=== PATIENT | male | born 1945 | race Caucasian/White ===

== ENCOUNTER 2020-09-06 16:42 | Observation (INO) ==
[2020-09-06] MEDS ORDERED: Mag Hydrox/Al Hydrox/Simeth 30 ML UDC PO PRN (18:30)
[2020-09-06] MEDS ORDERED: Acetaminophen 325 MG TABLET PO PRN (18:30)
[2020-09-06] MEDS ORDERED: Ondansetron ODT 4 MG TAB.RAPDIS SL PRN (18:30)
[2020-09-06] MEDS ORDERED: MOM Conc 10 ML UD.LIQ PO PRN (18:30)
[2020-09-06] MEDS ORDERED: Naloxone 0.4 MG/ML INJ IVP PRN (18:30)
[2020-09-07 01:10] LABS: Hematocrit 41.4 % (37.5-50.1); Hemoglobin 13.6 g/dL (12.9-16.9); Mean Corpuscular HGB Conc 32.9 g/dL (31.6-35.5); Mean Corpuscular Hemoglobin 31.9 pg (28.0-33.3); Mean Corpuscular Volume 97.2 fL (83.0-100.0); Mean Platelet Volume 8.9 fL (9.4-12.4); Platelet Count 231 K/mcL (140-400); Red Blood Count 4.26 M/mcL (4.19-5.50); Red Cell Distribution Width 14.6 % (11.5-14.5); White Blood Count 7.6 K/mcL (4.3-11.1)
[2020-09-07 01:27] LABS: BUN/Creatinine Ratio 15 (6-26); Blood Urea Nitrogen 15 mg/dL (8-23); Calcium 8.8 mg/dL (8.6-10.3); Carbon Dioxide 24 mEq/L (23-29); Chloride 107 mEq/L (98-107); Glucose 114 mg/dL (70-105); Magnesium 2.3 mg/dL (1.6-2.6); Osmolality,Calculated 286 (280-300); Potassium 4.3 mEq/L (3.5-5.1); Sodium 137 mEq/L (136-145); eGFR For African Americans > 60 (> 60); eGFR For Non-African Americans > 60 (> 60)
[2020-09-07] MEDS: *HR* Enoxaparin 40 MG/0.4 ML SYRINGE SQ SCH (05:30)
[2020-09-07] MEDS: Isosorbide MONOnitrate (24 HR) 30 MG TAB.ER.24H PO SCH (09:30)
[2020-09-07] MEDS: Aspirin Enteric Coated 81 MG Tablet PO SCH (09:30)
[2020-09-07] MEDS: Ranolazine 500 MG TAB.ER.12H PO SCH ×2 (09:30→21:08)
[2020-09-07] MEDS ORDERED: Perflutren Lipid Microsphere 1.3 ML in 0.9 % Sodium Chloride 8.7 ML IVP PRN (14:10)
[2020-09-07] MEDS ORDERED: NON-FORMULARY MEDICATION 1 EACH EACH (Pantoprazole Sodium 40 MG Tablet.Dr) PO SCH (21:00)
[2020-09-08] MEDS: *HR* Enoxaparin 40 MG/0.4 ML SYRINGE SQ SCH (05:43)
[2020-09-08] MEDS ORDERED: Regadenoson 0.4 MG/5 ML SYRINGE IVP ONE (06:46)
[2020-09-08] MEDS: Ranolazine 500 MG TAB.ER.12H PO SCH (09:34)
[2020-09-08] MEDS: Aspirin Enteric Coated 81 MG Tablet PO SCH (09:35)
[2020-09-08] MEDS: Isosorbide MONOnitrate (24 HR) 30 MG TAB.ER.24H PO SCH (09:35)
[2020-09-08] MEDS ORDERED: Tiotropium 10 INH DOSE IH SCH (10:00)
[2020-09-08] MEDS ORDERED: *HR* FentaNYL (PF) 100 MCG/2 ML VIAL ONE (14:14)
[2020-09-08] MEDS ORDERED: *HR* Heparin 10,000 UNIT/10 ML VIAL ONE (14:14)
[2020-09-08] MEDS ORDERED: Heparin 1,000 UNITS/500 mL 500 ML ONE (14:14)
[2020-09-08] MEDS ORDERED: 0.9 % Sodium Chloride 2,000 ML ONE (14:14)
[2020-09-08] MEDS ORDERED: ISOVUE-370 200 ML INFUS..BTL ONE (14:14)
[2020-09-08] MEDS ORDERED: *HR* Midazolam HCl 2 MG/2 ML VIAL ONE (14:14)
[2020-09-08] MEDS ORDERED: Nitroglycerin 1,000 MCG/5 ML VIAL IV ONE (14:14)
[2020-09-08] MEDS ORDERED: 0.9 % Sodium Chloride 1,000 ML IVC SCH (16:00)
[2020-09-08 17:33] VITALS: BP 115/74
[2020-09-09] MEDS ORDERED: Isosorbide MONOnitrate (24 HR) 30 MG TAB.ER.24H PO SCH (09:00)
== END 2020-09-08 19:15 | disposition home or self-care (01) ==
LOC: 3BNU → SUATTDRO 17:57
PROVIDERS: ADMIT Internal Medicine; ATTEND Registered Nurse